=== PATIENT | male | born 1945 | race Caucasian/White ===

== ENCOUNTER 2021-07-17 12:09 | Observation (INO) ==
--- NOTE | 2021-07-17 12:19 | Emergency Department Note ---
Impression & Plan Atypical chest pain ED Provider Note NAME: SALINA PICHARDO AGE: 75 SEX: M : 1945 ARRIVES VIA: Ambulance INFORMANT: Patient, ED PROVIDER(S): Melquiades Mondragon MD Chief Complaint: Chest pain HPI: Patient is visiting from [place], [place] for the [facility] homecoming alumni weekend. The patient did develop chest pain approximately 30 minutes prior to arrival. Chest pain was centralized nonradiating. Sharp. The patient denies any fevers chills. The patient did have some associated shortness of breath at the time. The patient chest pain is resolved. The patient did receive aspirin in route. Patient states it did feel similar to when he did require prior stents. Patient is vaccinated for Covid and denies upper respiratory symptoms. The patient denies any abdominal pain or leg swelling. No prior history of DVT or PE. The patient is on's of Asa as the patient has been on prior antiplatelets and blood thinners for history of A. fib but was transitioned as the patient did have a bad bleeding episode in 2019. Patient denies any falls or trauma. Patient states that he did take his morning medications. ROS: See HPI for pertinent positives and negatives. A total of 10 systems were reviewed and otherwise negative. Past medical history: See below Surgical history: See below Social history: See below Physical Exam: GENERAL: NAD, wearing glasses, wearing a mask, non-toxic. EYE EXAM: Normal conjunctiva. PERRL, no anisocoria and EOM's grossly intact w/o pain. NECK: Supple, no nuchal rigidity, no adenopathy, non-tender. No signs of meningismus. LUNGS: Clear to auscultation. Normal chest wall mechanics. HEART: Irregularly irregular, no MRG. ABDOMEN: Abdomen soft, non-tender, normo-active bowel sounds, no masses, no rebound or guarding. BACK: No CVA TTP. SKIN: No rashes and no bruising. UPPER EXTREMITIES: Upper extremities are grossly normal. LOWER EXTREMITIES: Grossly normal, no edema. Left knee in soft knee brace. NEURO EXAM: A&O x3, cranial nerves II-XII grossly intact, normal speech, moves all 4 extremities on command w/o issue. Differential diagnoses: Cardiac ischemia, aortic dissection, pulmonary embolism, pneumothorax, pneumonia, pericarditis, myocarditis, esophageal rupture, GERD, cholecystitis, pancreatitis, musculoskeletal, as well as other pathologies. Course: Patient was seen and evaluated the bedside. Full history physical exam was performed. EKG interpreted by me Jocelyn nick, rate of 90, normal QRS, normal axis, no obvious ST changes. PVCs noted. Repeat EKG interpreted by me Jocelyn nick with RVR, rate of 108, normal QRS, normal axis no change from prior completed earlier. Repeat EKG completed at 1347 interpreted by me Jocelyn nick with rate of 97, normal QRS, normal axis, no obvious ST changes and no obvious changes from prior EKG. Imaging Studies: See Below Cardiac monitoring: An order was placed for continuous cardiac monitoring. The monitor shows a rate of 95 with irregularly irregular rhythm. MDM: Patient was seen due to concern for atypical chest pain. This did resolve with aspirin in route. No nitro given. Blood works obtained along with an EKG. Patient's EKG does show A. fib. The patient did have recurrence of chest pain 7 out of 10 after a [place] touchdown. This did improve with nitro. No change on EKG. Patient already received aspirin in route. I did speak with the on-call hospitalist Dr. Coates and the patient was admitted to the medicine service due to concern for atypical chest pain. Patient has a normal white count mild anemia at 13.4. Platelet count is unremarkable. Kidney dysfunction with a creatinine 1.9. Unsure as to baseline. Glucose 216. Troponin not detectable. Chest x-ray does show reticulonodular interstitial thickening. Patient did have mild recurrences and chest pain with the patient was given additional nitro and repeat EKG showed no dynamic changes. I discussed heparin with cardiology but given that the patient is already anticoagulated do not think that this would be of great benefit at this time. I did convey this to the patient the patient's at bedside. Patient was admitted to the medicine service. Past Med/Surg History Medical History HLD (hyperlipidemia) HTN (hypertension) with goal to be determined Presence of stent in coronary artery in patient with coronary artery disease Surgical History No pertinent past surgical history Social History Smoking Status: Never smoker Hx Alcohol Use: No Hx Substance Use: No Preferred Language: German [employer] Required: No Beliefs That Will Affect Care: None Current Living Situation: Spouse Feels Safe at Home: Yes Safety Concerns: Feels Safe At This Time Assistive Devices: Cane and Glasses Allergies Allergies Allergy/AdvReac Type Severity Reaction Status Date / Time mushroom Allergy Unknown Unknown Unverified 07/17/21 13:10 shellfish derived Allergy Unknown Unknown Unverified 07/17/21 13:10 acetaminophen [From [place]] AdvReac Unknown Unknown Unverified 07/17/21 13:10 apixaban [From Eliquis] AdvReac Unknown Unknown Unverified 07/17/21 13:10 cefdinir AdvReac Unknown Unknown Unverified 07/17/21 13:10 clopidogrel AdvReac Unknown Unknown Unverified 07/17/21 13:10 doxycycline AdvReac Unknown Unknown Unverified 07/17/21 13:10 gabapentin AdvReac Unknown Unknown Unverified 07/17/21 13:10 hydrocodone [From [place]] AdvReac Unknown Unknown Unverified 07/17/21 13:10 isosorbide AdvReac Unknown Unknown Unverified 07/17/21 13:10 lisinopril AdvReac Unknown Unknown Unverified 07/17/21 13:10 methylprednisolone AdvReac Unknown Unknown Unverified 07/17/21 13:10 montelukast AdvReac Unknown Unknown Unverified 07/17/21 13:10 rivaroxaban AdvReac Unknown Unknown Unverified 07/17/21 13:10 tamsulosin AdvReac Unknown Unknown Unverified 07/17/21 13:10 ticagrelor [From Brilinta] AdvReac Unknown Unknown Unverified 07/17/21 13:10 Home Meds Home Medications Medication Instructions Recorded Confirmed atorvastatin 80 mg tablet (Lipitor) 80 mg PO QDD 07/17/21 07/17/21 chlorpheniramine maleate 4 mg 4 mg PO DAILY PRN 07/17/21 07/17/21 tablet (Allergy Relief (chlorpheniramine)) cholecalciferol (vitamin D3) 50 50 mcg PO QAM 07/17/21 07/17/21 mcg (2,000 unit) capsule (Vitamin D3) diclofenac sodium 1 % topical gel 2 g TOPICAL QDD 10/23/21 10/23/21 (Voltaren Arthritis Pain) edoxaban 30 mg tablet (Savaysa) 30 mg PO QDD 07/17/21 07/17/21 insulin NPH isoph U-100 human 100 35 unit SUBCUT HS 07/17/21 07/17/21 unit/mL subcutaneous suspension (Novolin N NPH U-100 Insulin isophane) insulin regular human 100 unit/mL 10 unit SUBCUT QAM 07/17/21 07/17/21 (3 mL) subcutaneous pen (Novolin R Flexpen) losartan 25 mg tablet (Cozaar) 25 mg PO QDD 07/17/21 07/17/21 metoprolol succinate 25 mg 75 mg PO QDD 07/17/21 07/17/21 tablet,extended release 24 hr (Toprol XL) multivitamin-ferrous 1 tab PO QAM 07/17/21 07/17/21 fumarate-folic acid 18 mg-400 mcg tablet (Centrum) nitroglycerin 0.4 mg sublingual 0.4 mg SUBLINGUAL UD PRN 07/17/21 07/17/21 tablet (Nitrostat) omega 5-hpk-fis-fish oil 1,000 mg 2 cap PO QAM 07/17/21 07/17/21 (120 mg-180 mg) capsule (Fish Oil) Results & Data (ED) Vital Signs Vital Signs - 24 hr 07/17/21 12:26 07/17/21 12:29 07/17/21 12:30 Temperature 36.6 C Temperature Source Oral Pulse Rate 108 H Pulse Rate from SpO2 Sensor Pulse Rhythm Regular Pulse Strength Normal Respiratory Rate 18 Respiratory Effort / Characteristics Non-Labored Respiratory Depth Normal Blood Pressure 129/85 Blood Pressure Mean 99 Blood Pressure Position Sitting Pulse Oximetry 97 97 Oxygen Delivery Method Room Air Room Air Room Air Sepsis Recent Fever Within 48 Hours No Sepsis New/Unexplained Change in Mental Status No Sepsis Action Taken by Nursing No Action Required 07/17/21 14:00 07/17/21 15:30 Temperature Temperature Source Pulse Rate 92 H 85 Pulse Rate from SpO2 Sensor 92 H 96 H Pulse Rhythm Pulse Strength Respiratory Rate 13 16 Respiratory Effort / Characteristics Respiratory Depth Blood Pressure 101/62 127/67 Blood Pressure Mean 75 87 Blood Pressure Position Pulse Oximetry 97 93 Oxygen Delivery Method Sepsis Recent Fever Within 48 Hours Sepsis New/Unexplained Change in Mental Status Sepsis Action Taken by Retirement Medications Current Medication List: was personally reviewed by me Laboratory Data Attestation: I reviewed the patient's lab results. Result diagrams: 07/17/21 12:20 07/17/21 12:20 Lab Results 07/17/21 07/17/21 07/17/21 Range/Units 12:20 12:20 12:20 WBC 8.50 (4.8-10.8) K/uL RBC 4.05 L (4.7-6.1) M/uL Hgb 13.4 L (14.0-18.0) g/dL Hct 38.6 L (42-52) % MCV 95.3 (80-100) fL MCH 33.1 (25-34) pg MCHC 34.7 (32-36) g/dL RDW Std Deviation 45.2 (36.4-46.3) fL RDW Coeff of Yuniel 13.1 (11.5-14.5) % Plt Count 159 (130-400) K/uL MPV 9.7 (7.4-10.4) fL Immature Gran % (Auto) 0.2 % Neut % (Auto) 77.7 % Lymph % (Auto) 8.9 % Sawyer % (Auto) 10.2 % Eos % (Auto) 2.6 % Baso % (Auto) 0.4 % Neut # (Auto) 6.60 H (1.4-6.5) K/uL Lymph # (Auto) 0.76 L (1.2-3.4) K/uL Sawyer # (Auto) 0.87 H (0.11-0.59) K/uL Eos # (Auto) 0.22 (0-0.5) K/uL Baso # (Auto) 0.03 (0-0.2) K/uL Immature Gran # (Auto) 0.02 (0.00-0.02) K/uL PT 10.4 (9.0-12.0) Seconds INR 1.0 (0.9-1.1) APTT 28.5 (21.0-31.0) Seconds PTT Ratio 1.1 D-Dimer (0-500) ug/L FEU Sodium 140 (136-145) mmol/L Potassium 4.6 (3.5-5.1) mmol/L Chloride 109 H (98-107) mmol/L Carbon Dioxide 24 (21-32) mmol/L Anion Gap 7.0 (3-11) BUN 32 H (7-18) mg/dl Creatinine 1.99 H (0.6-1.4) mg/dl Est Cr Clr Drug Dosing 47.7 ml/min Est GFR ( Amer) 37.5 ml/min Est GFR (Non-Af Amer) 32.4 ml/min BUN/Creatinine Ratio 16.0 (10-20) Glucose 216 H (70-99) mg/dl POC Glucose (70-99) mg/dl Calcium 10.1 (8.5-10.1) mg/dl Total Bilirubin 0.7 (0.2-1) mg/dl AST 17 (15-37) U/L ALT 31 (12-78) U/L Alkaline Phosphatase 134 H (45-117) U/L Troponin I < 0.015 (0-0.045) ng/ml Total Protein 7.5 (6.4-8.2) gm/dl Albumin 3.4 (3.4-5.0) gm/dl Globulin 4.1 H (2.5-4.0) gm/dl Albumin/Globulin Ratio 0.8 L (0.9-2) Lipase 198 (73-393) U/L COVID-19 Eval Order SARS-CoV-2 (PCR) (Negative) 07/17/21 07/17/21 07/17/21 Range/Units 12:20 12:20 12:49 WBC (4.8-10.8) K/uL RBC (4.7-6.1) M/uL Hgb (14.0-18.0) g/dL Hct (42-52) % MCV (80-100) fL MCH (25-34) pg MCHC (32-36) g/dL RDW Std Deviation (36.4-46.3) fL RDW Coeff of Yuniel (11.5-14.5) % Plt Count (130-400) K/uL MPV (7.4-10.4) fL Immature Gran % (Auto) % Neut % (Auto) % Lymph % (Auto) % Sawyer % (Auto) % Eos % (Auto) % Baso % (Auto) % Neut # (Auto) (1.4-6.5) K/uL Lymph # (Auto) (1.2-3.4) K/uL Sawyer # (Auto) (0.11-0.59) K/uL Eos # (Auto) (0-0.5) K/uL Baso # (Auto) (0-0.2) K/uL Immature Gran # (Auto) (0.00-0.02) K/uL PT (9.0-12.0) Seconds INR (0.9-1.1) APTT (21.0-31.0) Seconds PTT Ratio D-Dimer 960 H* (0-500) ug/L FEU Sodium (136-145) mmol/L Potassium (3.5-5.1) mmol/L Chloride (98-107) mmol/L Carbon Dioxide (21-32) mmol/L Anion Gap (3-11) BUN (7-18) mg/dl Creatinine (0.6-1.4) mg/dl Est Cr Clr Drug Dosing ml/min Est GFR ( Amer) ml/min Est GFR (Non-Af Amer) ml/min BUN/Creatinine Ratio (10-20) Glucose (70-99) mg/dl POC Glucose (70-99) mg/dl Calcium (8.5-10.1) mg/dl Total Bilirubin (0.2-1) mg/dl AST (15-37) U/L ALT (12-78) U/L Alkaline Phosphatase (45-117) U/L Troponin I Cancelled (0-0.045) ng/ml Total Protein (6.4-8.2) gm/dl Albumin (3.4-5.0) gm/dl Globulin (2.5-4.0) gm/dl Albumin/Globulin Ratio (0.9-2) Lipase (73-393) U/L COVID-19 Eval Order Covid19 at [facility] SARS-CoV-2 (PCR) (Negative) 07/17/21 07/17/21 07/17/21 Range/Units 12:49 13:51 14:22 WBC (4.8-10.8) K/uL RBC (4.7-6.1) M/uL Hgb (14.0-18.0) g/dL Hct (42-52) % MCV (80-100) fL MCH (25-34) pg MCHC (32-36) g/dL RDW Std Deviation (36.4-46.3) fL RDW Coeff of Yuniel (11.5-14.5) % Plt Count (130-400) K/uL MPV (7.4-10.4) fL Immature Gran % (Auto) % Neut % (Auto) % Lymph % (Auto) % Sawyer % (Auto) % Eos % (Auto) % Baso % (Auto) % Neut # (Auto) (1.4-6.5) K/uL Lymph # (Auto) (1.2-3.4) K/uL [place] # (Auto) (0.11-0.59) K/uL Eos # (Auto) (0-0.5) K/uL Baso # (Auto) (0-0.2) K/uL Immature Gran # (Auto) (0.00-0.02) K/uL PT (9.0-12.0) Seconds INR (0.9-1.1) APTT (21.0-31.0) Seconds PTT Ratio D-Dimer (0-500) ug/L FEU Sodium (136-145) mmol/L Potassium (3.5-5.1) mmol/L Chloride (98-107) mmol/L Carbon Dioxide (21-32) mmol/L Anion Gap (3-11) BUN (7-18) mg/dl Creatinine (0.6-1.4) mg/dl Est Cr Clr Drug Dosing ml/min Est GFR ( Amer) ml/min Est GFR (Non-Af Amer) ml/min BUN/Creatinine Ratio (10-20) Glucose (70-99) mg/dl POC Glucose 193 H (70-99) mg/dl Calcium (8.5-10.1) mg/dl Total Bilirubin (0.2-1) mg/dl AST (15-37) U/L ALT (12-78) U/L Alkaline Phosphatase (45-117) U/L Troponin I < 0.015 (0-0.045) ng/ml Total Protein (6.4-8.2) gm/dl Albumin (3.4-5.0) gm/dl Globulin (2.5-4.0) gm/dl Albumin/Globulin Ratio (0.9-2) Lipase (73-393) U/L COVID-19 Eval Order SARS-CoV-2 (PCR) NEGATIVE (Negative) Administered Medications Atorvastatin Calcium (Atorvastatin 40 Mg Tab) 80 mg PO QDD ADALI Stop: 08/16/21 16:29 Last Admin: 07/17/21 18:13 Dose: 80 mg Documented by: [id number] Losartan Potassium (Losartan Potassium 25 Mg Tab) 25 mg PO QDD ADALI Stop: 08/16/21 16:29 Last Admin: 07/17/21 18:14 Dose: 25 mg Documented by: [id number] Metoprolol Succinate (Metoprolol Succ 25mg Ext Rel Tab) 75 mg PO QDD ADALI Stop: 08/16/21 16:29 Last Admin: 07/17/21 18:13 Dose: 75 mg Documented by: [id number] Nitroglycerin (Nitroglycerin Sl 0.4 Mg/Tab Tab) 0.4 mg SL UD PRN PRN Reason: Chest Pain Stop: 08/16/21 12:25 Last Admin: 07/17/21 13:37 Dose: 0.4 mg Documented by: [id number] Admin: 07/17/21 12:41 Dose: 0.4 mg Documented by: [id number] Discontinued Medications Fentanyl Citrate (Fentanyl Citrate 100 Mcg/2 Ml Vial) 25 mcg IV NOW STA Stop: 07/17/21 13:55 Last Admin: 07/17/21 14:16 Dose: 25 mcg Documented by: [id number] Heparin Sodium/Dextrose (Heparin Iv Adult Wt-Based Low-Dose With Bolus Protocol) 1 ea IV NOW STA; Protocol Stop: 07/17/21 13:51 Last Admin: 07/17/21 17:04 Dose: Not Given Documented by: [id number] Nitroglycerin (Nitroglycerin 2% Ointment 30gm Tube) Confirm Administered Dose 18 inch .ROUTE .STK-MED ONE Stop: 07/17/21 13:50 Last Admin: 07/17/21 13:53 Dose: 1 inch Documented by: [id number] Edoxaban 30 Mg - Non -Formulary Patient's Own Med 1 ea PO TODAY@1800 ONE Stop: 07/17/21 18:01 Last Admin: 07/17/21 18:13 Dose: 30 mg Documented by: [id number] Imaging Data Radiologist's Impression: Chest X-Ray 07/17/21 12:26 XR chest 1V portable CLINICAL HISTORY: Atypical chest pain. COMPARISON STUDY: No previous studies for comparison. FINDINGS: Lung volumes are normal. There is no pneumothorax or pleural effusion. Mild cardiomegaly is noted. There is mild reticulonodular interstitial thickening. There is no lobar consolidation. IMPRESSION: Mild reticulonodular interstitial thickening. This is nonspecific although may reflect an infectious process. Radiographic follow up is recommended. ACT 112: Negative or not required by law. Electronically signed by: Rogelio Meier M.D. 07/17/2021 12:34 PM Discharge Plan Visit Data Chief Complaint: Chest Pain ED Provider: Melquiades Mondragon Discharge Problem: Atypical chest pain Patient Disposition: Admitted As Inpatient Discharge Instructions Interventions: ED Discharge Assessment Last Done: 07/17/21 16:26
[2021-07-17 12:36] LABS: Basophils # (auto) 0.03 K/uL (0-0.2); Basophils % (auto) 0.4 %; Eosinophils # (auto) 0.22 K/uL (0-0.5); Eosinophils % (auto) 2.6 %; Hematocrit (blood only) 38.6 % (42-52); Hemoglobin 13.4 g/dL (14.0-18.0); Immature Granulocytes # (auto) 0.02 K/uL (0.00-0.02); Immature Granulocytes % (auto) 0.2 %; Lymphocytes # (auto) 0.76 K/uL (1.2-3.4); Lymphocytes % (auto) 8.9 %; Mean Corpuscular Hemoglobin 33.1 pg (25-34); Mean Corpuscular Hgb Conc 34.7 g/dL (32-36); Mean Corpuscular Volume 95.3 fL (80-100); Mean Platelet Volume 9.7 fL (7.4-10.4); Monocytes # (auto) 0.87 K/uL (0.11-0.59); Monocytes % (auto) 10.2 %; Neutrophils % (auto) 77.7 %; Platelet Count 159 K/uL (130-400); RDW Coefficient of Variation 13.1 % (11.5-14.5); RDW Standard Deviation 45.2 fL (36.4-46.3); Red Blood Count 4.05 M/uL (4.7-6.1)
--- NOTE | 2021-07-17 12:36 | XRay Report ---
XR chest 1V portable CLINICAL HISTORY: Atypical chest pain. COMPARISON STUDY: No previous studies for comparison. FINDINGS: Lung volumes are normal. There is no pneumothorax or pleural effusion. Mild cardiomegaly is noted. There is mild reticulonodular interstitial thickening. There is no lobar consolidation. IMPRESSION: Mild reticulonodular interstitial thickening. This is nonspecific although may reflect a n infectious process. Radiographic follow up is recommended. ACT 112: Negative or not required by law. Electronically signed by: Rogelio Meier M.D. 07/17/2021 12:34 PM
[2021-07-17] MEDS: NITROGLYCERIN SL 0.4 MG/TAB TAB SL PRN ×2 (12:41→13:37)
[2021-07-17 12:46] LABS: Alanine Aminotransferase 31 U/L (12-78); Albumin Level 3.4 gm/dl (3.4-5.0); Aspartate Aminotransferase 17 U/L (15-37); Blood Urea Nitrogen 32 mg/dl (7-18); Calcium 10.1 mg/dl (8.5-10.1); Carbon Dioxide 24 mmol/L (21-32); Chloride 109 mmol/L (98-107); Creatinine Clr Calc Pharmacy 47.7 ml/min; Est GFR (African American) 37.5 ml/min; Est GFR (Non-African American) 32.4 ml/min; Glucose 216 mg/dl (70-99); Lipase 198 U/L (73-393); Potassium 4.6 mmol/L (3.5-5.1); Sodium 140 mmol/L (136-145)
[2021-07-17 12:49] LABS: Partial Thromboplastin Ratio 1.1; Partial Thromboplastin Time 28.5 Seconds (21.0-31.0); Prothrombin Time 10.4 Seconds (9.0-12.0)
[2021-07-17 12:51] LABS: Albumin Globulin Ratio 0.8 (0.9-2); Alkaline Phosphatase 134 U/L (45-117); Bilirubin,Total 0.7 mg/dl (0.2-1); Globulin 4.1 gm/dl (2.5-4.0); Total Protein 7.5 gm/dl (6.4-8.2); Troponin I < 0.015 ng/ml (0-0.045)
[2021-07-17] MEDS ORDERED: NITROGLYCERIN 2% OINTMENT 30GM TUBE ONE (13:49)
[2021-07-17] MEDS ORDERED: Heparin IV Adult Wt-Based Low-Dose WITH Bolus Protocol IV STA (13:50)
[2021-07-17] MEDS ORDERED: fentaNYL citrate 100 MCG/2 ML VIAL IV STA (13:54)
[2021-07-17] MEDS ORDERED: HEPARIN SOD (PORCINE) 1000 UNIT/ML IV ONE (14:06)
--- NOTE | 2021-07-17 14:14 | Electrocardiogram Report ---
Test Reason : Blood Pressure : / mmHG Vent. Rate : 090 BPM Atrial Rate : 119 BPM P-R Int : 000 ms QRS Dur : 078 ms QT Int : 360 ms P-R-T Axes : 000 012 037 degrees QTc Int : 440 ms Atrial fibrillation with premature ventricular or aberrantly conducted complexes Abnormal ECG No previous ECGs available Confirmed by Ryne Quevedo ([id number]) on 07/17/2021 2:14:23 PM Referred By: REFERRED SELF Confirmed By:Ryne Quevedo
[2021-07-17] MEDS ORDERED: HEPARIN SODIUM/DEXTROSE 25,000 UNITS/500 ML BAG IV SCH (14:15)
[2021-07-17] MEDS ORDERED: CARBOHYDRATES FOR HYPOGLYCEMIA PO PRN (14:15)
[2021-07-17] MEDS ORDERED: DEXTROSE 50% 50 ML SYRINGE IV PRN (14:15)
[2021-07-17] MEDS ORDERED: GLUCOSE 40% GEL 15 GM TUBE PO PRN (14:15)
[2021-07-17] MEDS ORDERED: GLUCOSE 10 TABS/TUBE PO PRN (14:15)
[2021-07-17] MEDS ORDERED: GLUCAGON FOR INJ 1 MG VIAL IM PRN (14:15)
--- NOTE | 2021-07-17 14:15 | Electrocardiogram Report ---
Test Reason : Blood Pressure : / mmHG Vent. Rate : 097 BPM Atrial Rate : 208 BPM P-R Int : 000 ms QRS Dur : 080 ms QT Int : 370 ms P-R-T Axes : 000 010 034 degrees QTc Int : 469 ms Atrial fibrillation Cannot rule out Inferior infarct , age undetermined Abnormal ECG When compared with ECG of 17-JUL-2021 12:48, (unconfirmed) Minimal criteria for Inferior infarct are now Present Confirmed by Ryne Quevedo ([id number]) on 07/17/2021 2:15:31 PM Referred By: REFERRED SELF Confirmed By:Ryne Quevedo
--- NOTE | 2021-07-17 14:15 | Electrocardiogram Report ---
Test Reason : Blood Pressure : / mmHG Vent. Rate : 108 BPM Atrial Rate : 105 BPM P-R Int : 000 ms QRS Dur : 080 ms QT Int : 358 ms P-R-T Axes : 000 056 026 degrees QTc Int : 479 ms Poor data quality, interpretation may be adversely affected Atrial fibrillation with rapid ventricular response Abnormal ECG When compared with ECG of 17-JUL-2021 12:18, (unconfirmed) No significant change was found Confirmed by Ryne Quevedo ([id number]) on 07/17/2021 2:15:01 PM Referred By: REFERRED SELF Confirmed By:Ryne Quevedo
[2021-07-17 14:43] LABS: D Dimer 960 ug/L FEU (0-500)
--- NOTE | 2021-07-17 15:44 | History & Physical Report ---
Date of Service July 17, 2021 Assessment & Plan (1) Atypical chest pain: Plan: Patient will be admitted under OBS. Due to nature of chest pain, concern over possible P/E This possibility appears to be unlikely due to patient being on a anticoagulant. D-Dimer was positive, will order U/S doppler of lower extremities. If this is negative, will not further pursue this. will consult cardio. Anticipate discharge tomorrow. (2) Paroxysmal A-fib: Plan: HR appears to be controlle.d will monitor (3) CKD (chronic kidney disease) stage 3, GFR 30-59 ml/min: Plan: Baseline Creatinine is 1.6 to 2.1 At baseline. will monitor (4) Rash and nonspecific skin eruption: Plan: Patient has a skin rash on his neck.This was noted after he was admitted. Will order 10 mg of prednisone BID. and see how he tolerateds it and reassess. Patient has h/o of herpes zoster, however this crosses the midline and does not follow one dermatome. Placed him in isolation to be cautious/ History of Present Illness Chief Complaint: chest pain Primary Care Provider: Prem Pitt 72-year-old male who comes from [place] for the [employer] game. While he was tailgating, patient developed left-sided pinpointed chest pain located on the 8th intercostal space on the mid clavicular line. Patient reports that this pain chest pain was sharp in nature and lasted for about an hour. Patient had apple watch on, he noted that his heart rate was in the 130s at this time. Patient has history of atrial fibrillation and is on anticoagulation. Patient states that he drove from [place] about 3 hours straight to get the game. During the interview, patient states that he is feeling better. Allergies Allergy/AdvReac Type Severity Reaction Status Date / Time mushroom Allergy Unknown Unknown Unverified 07/17/21 13:10 shellfish derived Allergy Unknown Unknown Unverified 07/17/21 13:10 acetaminophen [From [place]] AdvReac Unknown Unknown Unverified 07/17/21 13:10 apixaban [From Eliquis] AdvReac Unknown Unknown Unverified 07/17/21 13:10 cefdinir AdvReac Unknown Unknown Unverified 07/17/21 13:10 clopidogrel AdvReac Unknown Unknown Unverified 07/17/21 13:10 doxycycline AdvReac Unknown Unknown Unverified 07/17/21 13:10 gabapentin AdvReac Unknown Unknown Unverified 07/17/21 13:10 hydrocodone [From [place]] AdvReac Unknown Unknown Unverified 07/17/21 13:10 isosorbide AdvReac Unknown Unknown Unverified 07/17/21 13:10 lisinopril AdvReac Unknown Unknown Unverified 07/17/21 13:10 methylprednisolone AdvReac Unknown Unknown Unverified 07/17/21 13:10 montelukast AdvReac Unknown Unknown Unverified 07/17/21 13:10 rivaroxaban AdvReac Unknown Unknown Unverified 07/17/21 13:10 tamsulosin AdvReac Unknown Unknown Unverified 07/17/21 13:10 ticagrelor [From Brilinta] AdvReac Unknown Unknown Unverified 07/17/21 13:10 Home Medications Medication Instructions Recorded Confirmed Type atorvastatin 80 mg tablet (Lipitor) 80 mg PO QDD 07/17/21 07/17/21 History chlorpheniramine maleate 4 mg 4 mg PO DAILY PRN 07/17/21 07/17/21 History tablet (Allergy Relief (chlorpheniramine)) cholecalciferol (vitamin D3) 50 50 mcg PO QAM 07/17/21 07/17/21 History mcg (2,000 unit) capsule (Vitamin D3) diclofenac sodium 1 % topical gel 2 g TOPICAL QDD 07/17/21 07/17/21 History (Voltaren Arthritis Pain) edoxaban 30 mg tablet (Savaysa) 30 mg PO QDD 07/17/21 07/17/21 History insulin NPH isoph U-100 human 100 35 unit SUBCUT HS 07/17/21 07/17/21 History unit/mL subcutaneous suspension (Novolin N NPH U-100 Insulin isophane) insulin regular human 100 unit/mL 10 unit SUBCUT QAM 07/17/21 07/17/21 History (3 mL) subcutaneous pen (Novolin R Flexpen) losartan 25 mg tablet (Cozaar) 25 mg PO QDD 07/17/21 07/17/21 History metoprolol succinate 25 mg 75 mg PO QDD 07/17/21 07/17/21 History tablet,extended release 24 hr (Toprol XL) multivitamin-ferrous 1 tab PO QAM 07/17/21 07/17/21 History fumarate-folic acid 18 mg-400 mcg tablet (Centrum) nitroglycerin 0.4 mg sublingual 0.4 mg SUBLINGUAL UD PRN 07/17/21 07/17/21 History tablet (Nitrostat) omega 5-vty-kzi-fish oil 1,000 mg 2 cap PO QAM 07/17/21 07/17/21 History (120 mg-180 mg) capsule (Fish Oil) Past Med/Surg History Medical History (Updated 07/17/21 @ 21:55 by Rod Coates) HLD (hyperlipidemia) HTN (hypertension) with goal to be determined Presence of stent in coronary artery in patient with coronary artery disease Surgical History No pertinent past surgical history Social History Smoking Status: Never smoker Hx Alcohol Use: No Hx Substance Use: No Preferred Language: Ukrainian [employer]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 Beliefs That Will Affect Care: None Current Living Situation: Spouse Feels Safe at Home: Yes Safety Concerns: Feels Safe At This Time Assistive Devices: Cane and Glasses Review of Systems Constitutional: no fever and no sweats Eyes: no blind spots and no diplopia Ear, Nose, Mouth, Throat: no ear pain and no ear trauma Respiratory: no cough Cardiovascular: + chest pain; no dyspnea on exertion Gastrointestinal: no abdominal pain Genitourinary: no dysuria or no urinary frequency Musculoskeletal: no back pain Integumentary: no acne and no rash Neurologic: no gait abnormality and no falls Psychiatric: no behavioral changes Endocrine: no polydipsia Hematologic / Lymphatic: no easy bleeding and no coagulopathy Allergy / Immunological: no GI upset with certain foods Physical Exam Constitutional: WD/WN, vitals as above Eyes: PERRL, conjunctivae normal, anicteric sclerae ENMT: external ear and nose normal, oropharynx normal Neck: trachea midline, no thyromegaly Respiratory: normal respiratory effort, lungs clear to auscultation Cardiovascular: Rate/Rhythm: + irregularly irregular Heart Sounds: normal S1 and normal S2 Gastrointestinal (Abdomen): normal bowel sounds, soft, nontender, no hepatosplenomegaly Musculoskeletal: no cyanosis or clubbing, extremities motor strength 5/5 Skin: no rashes, warm and dry Psychiatric: A+Ox3, euthymic affect Lymphatic: no cervical or axillary lymphadenopathy Results & Data Results & Data ([facility]) Vital Signs (Past 12 Hours) Vital Signs Temp Pulse Resp BP Pulse Ox 07/17/21 12:30 97 07/17/21 12:26 36.6 C 108 H 18 129/85 97 PG Care Time/CCT Total # of Minutes Spent Total Time Spent with Patient: Total time spent is greater than 50% in coordination of care (as documented) at patient's floor/unit and/or counseling patient: Coding Level of Care Code INT OBSERVATION CARE 72M LVL 3 Diagnoses Atypical chest pain R07.89 Paroxysmal A-fib I48.0 CKD (chronic kidney disease) stage 3, GFR 30-59 ml/min N18.30 Rash and nonspecific skin eruption R21
[2021-07-17] MEDS ORDERED: LOSARTAN POTASSIUM 25 MG TAB PO SCH (16:30)
[2021-07-17] MEDS ORDERED: ATORVASTATIN 40 MG TAB PO SCH (16:30)
[2021-07-17] MEDS ORDERED: METOPROLOL SUCC 25MG EXT REL TAB PO SCH (16:30)
[2021-07-17] MEDS ORDERED: PHARMACY GLYCEMIC MGMT CONSULT PRN (16:48)
[2021-07-17] MEDS ORDERED: INFLUENZA VACCINE HIGH DOSE PF 65+ 0.7 ML SYR IM ONE (16:58)
[2021-07-17] MEDS ORDERED: EDOXABAN 30 MG PO ONE (18:00)
[2021-07-17] MEDS ORDERED: diphenhydrAMINE Capsule 25 MG CAP PO ONE (18:54)
[2021-07-17] MEDS: INSULIN ASPART 100 UNITS/ML 3 ML PEN SC SCH ×2 (19:00→20:58)
[2021-07-17] MEDS: predniSONE 10 MG TABLET PO SCH (20:56)
[2021-07-17] MEDS ORDERED: INSULIN HUMAN NPH SQ SCH (21:00)
[2021-07-18 08:03] LABS: Basophils # (auto) 0.01 K/uL (0-0.2); Basophils % (auto) 0.2 %; Eosinophils # (auto) 0.07 K/uL (0-0.5); Eosinophils % (auto) 1.1 %; Hematocrit (blood only) 35.2 % (42-52); Hemoglobin 12.1 g/dL (14.0-18.0); Immature Granulocytes # (auto) 0.01 K/uL (0.00-0.02); Immature Granulocytes % (auto) 0.2 %; Lymphocytes # (auto) 0.47 K/uL (1.2-3.4); Lymphocytes % (auto) 7.6 %; Mean Corpuscular Hgb Conc 34.4 g/dL (32-36); Mean Corpuscular Volume 93.1 fL (80-100); Mean Platelet Volume 9.6 fL (7.4-10.4); Monocytes # (auto) 0.51 K/uL (0.11-0.59); Monocytes % (auto) 8.3 %; Neutrophils # (auto) 5.08 K/uL (1.4-6.5); Neutrophils % (auto) 82.6 %; Platelet Count 159 K/uL (130-400); RDW Coefficient of Variation 13.2 % (11.5-14.5); Red Blood Count 3.78 M/uL (4.7-6.1); White Blood Count 6.15 K/uL (4.8-10.8)
--- NOTE | 2021-07-18 08:23 | Ultrasound Report ---
BILATERAL LOWER EXTREMITY VENOUS DOPPLER CLINICAL HISTORY: Chest pain. Elevated d-dimer. COMPARISON STUDY: No previous studies for comparison. TECHNIQUE: Sonography of the deep venous system of the bilateral lower extremities was performed. Co mpression and augmentation were evaluated. FINDINGS: The bilateral common femoral, superficial femoral and popliteal veins were compressible. A ugmentation was normal. Flow was shown within the deep calf vessels. Note is made of a 3.2 x 0.5 x 1. 4 cm complex collection within the popliteal fossa which contains a 4 mm calcification. IMPRESSION: 1. No evidence of deep venous thrombus within the bilateral lower extremities. 2. 3.2 x 0.5 x 1.4 cm complex left popliteal cyst. ACT 112: Negative or not required by law. Electronically signed by: Rogelio Meier M.D. 07/18/2021 8:22 AM
[2021-07-18] MEDS: predniSONE 10 MG TABLET PO SCH (08:42)
[2021-07-18 08:59] LABS: Alanine Aminotransferase 28 U/L (12-78); Albumin Level 2.8 gm/dl (3.4-5.0); Aspartate Aminotransferase 19 U/L (15-37); BUN Creatinine Ratio 19.3 (10-20); Bilirubin Direct 0.1 mg/dl (0-0.2); Blood Urea Nitrogen 31 mg/dl (7-18); Calcium 9.6 mg/dl (8.5-10.1); Carbon Dioxide 25 mmol/L (21-32); Chloride 109 mmol/L (98-107); Cholesterol 122 mg/dl (0-200); Est GFR (African American) 48.4 ml/min; Est GFR (Non-African American) 41.8 ml/min; Glucose 177 mg/dl (70-99); Potassium 4.5 mmol/L (3.5-5.1); Sodium 140 mmol/L (136-145); Triglycerides 119 mg/dl (0-150); VLDL Cholesterol 24 mg/dl
[2021-07-18] MEDS ORDERED: NON-FORMULARY MEDICATION (Insulin Regular Human [Novolin R Flexpen] 100 unit/mL (3 mL) Ins SQ SCH (09:00)
[2021-07-18] MEDS ORDERED: OMEGA-3 (PURIFIED FISH OIL) 1 GM CAP PO SCH (09:00)
[2021-07-18] MEDS ORDERED: CEROVITE ADV FORMULA TAB PO SCH (09:00)
[2021-07-18] MEDS ORDERED: CHOLECALCIFEROL 1,000 UNITS 25 MCG TAB PO SCH (09:00)
[2021-07-18 09:04] LABS: Albumin Globulin Ratio 0.7 (0.9-2); Alkaline Phosphatase 114 U/L (45-117); Bilirubin,Total 0.6 mg/dl (0.2-1); Chol HDL Ratio 4; Globulin 3.8 gm/dl (2.5-4.0); HDL Cholesterol 31 mg/dl; LDL Cholesterol Calculated 67 mg/dl; Total Protein 6.6 gm/dl (6.4-8.2); Troponin I < 0.015 ng/ml (0-0.045)
[2021-07-18] MEDS: INSULIN ASPART 100 UNITS/ML 3 ML PEN SC SCH ×2 (09:12→12:07)
--- NOTE | 2021-07-18 10:46 | XCELERA ---
[id number] \\[id number]
[2021-07-18] MEDS ORDERED: INSULIN HUMAN NPH SQ ONE (12:00)
--- NOTE | 2021-07-18 12:10 | Discharge Summary ---
Date of Service July 18, 2021 Admission HPI Per Admitting Provider 72-year-old male who comes from [place] for the [employer] game. 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 Prior to the chest pain, patient had the urgency for a bowel movment accompanied by left UQ pain. The abdominal pain subsided after a large non bloody bowel movement. However, shrtly after, patient developed left-sided pinpointed chest pain located on the 8th intercostal space on the mid clavicular line. Patient reports that this pain chest pain was sharp in nature and lasted for about an hour. Patient had apple watch on, he noted that his heart rate was in the 130s at this time. Patient has history of atrial fibrillation and is on anticoagulation. [facility] and was told to go to the hospital which is a few minutes away from the [facility]. During the interview, patient states that he is feeling better. Patient states that he drove from [place] about 3 hours straight to get the game. Principal Diagnosis chest pain Discharge Exam Constitutional WD/WN, vitals as above Eyes PERRL, conjunctivae normal, anicteric sclerae ENMT external ear and nose normal, oropharynx normal Neck trachea midline, no thyromegaly Respiratory normal respiratory effort, lungs clear to auscultation Cardiovascular Rate/Rhythm: + irregularly irregular Heart Sounds: normal S1 and normal S2 Gastrointestinal (Abdomen) normal bowel sounds, soft, nontender, no hepatosplenomegaly Musculoskeletal no cyanosis or clubbing, extremities motor strength 5/5 Skin small pauplar erythematous rash (appears better, less pink crosses midline Psychiatric A+Ox3, euthymic affect Lymphatic no cervical or axillary lymphadenopathy Discharge Data Allergies Allergy/AdvReac Type Severity Reaction Status Date / Time mushroom Allergy Unknown Unknown Unverified 07/17/21 13:10 shellfish derived Allergy Unknown Unknown Unverified 07/17/21 13:10 acetaminophen [From Friendship] AdvReac Unknown Unknown Unverified 07/17/21 13:10 apixaban [From Eliquis] AdvReac Unknown Unknown Unverified 07/17/21 13:10 cefdinir AdvReac Unknown Unknown Unverified 07/17/21 13:10 clopidogrel AdvReac Unknown Unknown Unverified 07/17/21 13:10 doxycycline AdvReac Unknown Unknown Unverified 07/17/21 13:10 gabapentin AdvReac Unknown Unknown Unverified 07/17/21 13:10 hydrocodone [From [facility]ship] AdvReac Unknown Unknown Unverified 07/17/21 13:10 isosorbide AdvReac Unknown Unknown Unverified 07/17/21 13:10 lisinopril AdvReac Unknown Unknown Unverified 07/17/21 13:10 methylprednisolone AdvReac Unknown Unknown Unverified 07/17/21 13:10 montelukast AdvReac Unknown Unknown Unverified 07/17/21 13:10 rivaroxaban AdvReac Unknown Unknown Unverified 07/17/21 13:10 tamsulosin AdvReac Unknown Unknown Unverified 07/17/21 13:10 ticagrelor [From Brilinta] AdvReac Unknown Unknown Unverified 07/17/21 13:10 Consultations 07/17/21 13:14 ED Decision to Admit Stat 07/18/21 11:40 Burn CD for patient Stat Ordered Studies 07/18/21 US venous doppler [facility] Urgent Hospital Course (1) Atypical chest pain: Patient will be admitted under OBS. Due to nature of chest pain, concern over possible P/E This possibility appears to be unlikely due to patient being on a anticoagulant. He states he is compliant on this. As D-Dimer was positive, ordered U/S doppler of lower extremities. This was negative making a pulmonary emboli less likely. Will not pursue further workup as patient is not hypoxic and chest pain has subsided Patient would like to followup with his vibration technician and PCP back at home. will burn the echocardiogram on a CD so they can evaluate it. Echo showed only a very small area of akinesis at the apex. Trop negative x4. Will discharge patient. (2) Paroxysmal A-fib: HR appears to be controlled will monitor (3) CKD (chronic kidney disease) stage 3, GFR 30-59 ml/min: Baseline Creatinine is 1.6 to 2.1 At baseline. will monitor (4) Rash and nonspecific skin eruption: Patient has a skin rash on his neck.This was noted after he was admitted. Will order 10 mg of prednisone BID. and see how he tolerateds it and reassess. Patient has h/o of herpes zoster, however this crosses the midline and does not follow one dermatome. Placed him in isolation to be cautious On day of discharge: will order a short taper course of prednisone. Total Time Total Time Spent Total Time Spent (In Minutes): 32 Discharge Plan Discharge Items Patient Disposition: Home - Self-Care Reason For Visit: CHEST PAIN Discharge Diagnosis: chest pain Activity: Resume your previous activity Non-emergency contact: Primary Care Provider Call non-emergency contact if: you have any medication questions Follow-up/Referrals: Prem Pitt [Other] Diet: Regular and Carb Consistent or DM2 Addtl Attending Provider Instructions: You came to the hospital with Chest pain. You were kept overnight for observation. Your cardiac markers remained completely negative. Your doppler ultrasound of your legs did not show any signs of venous thrombosis. Your creatinine also improved to 1.6 on day of discharge. You will have a copy of your echocardiogram which you can show to your Doctor in [place]. Recommend following up with your PCP within 1 week. In regards to your rash, i will recommend a low dose taper of prednisone while also continuing benadryl. The scrip of the prednisone will be sent to your pharmacy in [place], [place]. Pending Studies at Discharge: No Stand-Alone Forms: [employer] [facility] [employer] Smoking Cessation Medications and DC Order Prescriptions: New prednisone 2.5 mg tablet See Rx Instructions .ROUTE .COMPLEX Qty: 42 RF: 0 Continued atorvastatin [Lipitor] 80 mg tablet 80 mg PO QDD RF: 0 chlorpheniramine maleate [Allergy Relief(chlorpheniramn)] 4 mg tablet 4 mg PO DAILY PRN (Reason: .) RF: 0 losartan [Cozaar] 25 mg tablet 25 mg PO QDD RF: 0 Novolin N NPH U-100 Insulin 100 unit/mL suspension 35 unit SUBCUT HS RF: 0 nitroglycerin [Nitrostat] 0.4 mg Tablet, Sublingual 0.4 mg sublingual UD PRN (Reason: Chest Pain) RF: 0 metoprolol succinate [Toprol XL] 25 mg tablet extended release 24 hr 75 mg PO QDD RF: 0 Novolin R Flexpen 100 unit/mL (3 mL) Insulin Pen 10 unit SUBCUT QAM RF: 0 diclofenac sodium [Voltaren Arthritis Pain] 1 % Gel 2 g TOPICAL QDD RF: 0 cholecalciferol (vitamin D3) [Vitamin D3] 50 mcg (2,000 unit) Capsule 50 mcg PO QAM RF: 0 Centrum 18-400 mg-mcg tablet 1 tab PO QAM RF: 0 omega 6-qlw-lto-fish oil [Fish Oil] 1,000 mg (120 mg-180 mg) Capsule 2 cap PO QAM RF: 0 Savaysa 30 mg tablet 30 mg PO QDD RF: 0 Discharge Orders: Discharge Order (Routine); Ordered 07/18/21 Ordered By: Rod Coates Admission Data Admit Date/Time: 07/17/21 15:44 Attending Provider: Rod Coates Admit Provider: Rod Coates Primary Care Provider: Prem Pitt Other Providers: Rod Coates Other Interventions: Discharge Summary Assessment (RN) Last Done: 07/18/21 12:17 Coding Level of Care Code 11331 OBS Care - Discharge Diagnoses Atypical chest pain R07.89 Paroxysmal A-fib I48.0 CKD (chronic kidney disease) stage 3, GFR 30-59 ml/min N18.30 Rash and nonspecific skin eruption R21
[2021-07-19 06:56] LABS: Estimated Average Glucose 249 mg/dl; Hemoglobin A1C 10.3 % (4.5-5.6)
== END 2021-07-18 12:51 | disposition home or self-care (01) ==
LOC: ED 12:09 → 2N 12:09 → SUATTDRO 15:44 → 2N 16:26